=== PATIENT | male | born 1950 | race Caucasian/White ===

== ENCOUNTER 2017-03-13 02:57 | Emergency (ER) | payer MEDICARE, OTHER ==
[2017-03-13 03:05] LABS: EOSINOPHILS % (AUTO) 3.9 % (0-5); MONOCYTES % (AUTO) 9.3 % (4-12); Mean Corpuscular Hemoglobin 30.7 pg (27.0-35.0); Mean Corpuscular Volume 87.6 fL (81-100); NEUTROPHILS % (AUTO) 64.3 % (40-74); Platelet Count 258 bil/L (150-400)
[2017-03-13 03:20] LABS: INR 0.96 ratio
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
[2017-03-13 03:25] LABS: TROPONIN T 0.01 ug/L (0.0-0.011)
[2017-03-13] MEDS ORDERED: Alteplase (No Charge) 1 mg/mL Syringe IV ONE (04:00)
[2017-03-13] MEDS ORDERED: ALTEPLASE IV ONE (04:00)
[2017-03-13 05:06] VITALS: BP 145/73; PULSE 65; RESP 16; O2SAT 96
--- NOTE | 2017-03-13 09:00 | DRSVH ---
PROCEDURE: CT BRAIN (TPA) ([id number]) INDICATIONS: Stroke TECHNIQUE: Noncontrast 4.5 mm thick angled axial sections acquired from the foramen magnum to the vertex, with c oronal reformats. COMPARISON: None. FINDINGS: Preliminary report by night clerk auditor radiology Image quality: Excellent. CSF spaces: Basal cisterns are patent. No extra-axial fluid collections. Ventricles are symmetrica l in size and shape. Brain: No midline shift. No intracranial masses or hemorrhage. Quezada-white matter interface is norm al. There is slight, ill-defined decreased attenuation in the left temporal parietal region. The left middle cerebral artery appears hyperdense. Skull and face: Calvarium and visualized facial bones are intact, without suspicious lesions. Sinuses: Visualized sinuses and mastoids are clear. IMPRESSION: 1. No intracranial hemorrhage or contraindication to TPA seen. 2. Findings are of concern for possible acute left hemispheric CVA. MRI imaging recommended. Findings appear concordant with the preliminary report This study fulfills neurological imaging criteria for inclusion or exclusion of acute stroke therapie s based on available published neurological imaging guidelines. Dictated by: Chaka Ochoa M.D. on 03/13/2017 at 8:53 Approved by: Chaka Ochoa M.D. on 03/13/2017 at 8:58
--- NOTE | 2017-03-13 09:25 | DRSVH ---
PROCEDURE: X-RAY CHEST ONE VIEW ([id number]) INDICATIONS: STROKE LMCA TECHNIQUE: One view of the chest was acquired. COMPARISON: None. FINDINGS: Surgical changes and devices: None. Lungs and pleura: No pleural effusions or pneumothorax. Lungs are clear. Mediastinum: Mediastinal contours appear normal. Heart size is normal. Bones and chest wall: No suspicious bony lesions. Overlying soft tissues appear unremarkable. IMPRESSION: No acute cardiopulmonary disease. Dictated by: José COLLIER Interpreted: Humble Ochoa MD on 03/13/2017 at 9:24 Transcribed by: DAVID on 03/13/2017 at 9:24 Approved by: Chaka Ochoa M.D. on 03/13/2017 at 10:50
== END 2017-03-13 04:55 | disposition short-term general hospital (02) ==
LOC: SED 02:57
DX: I63.9 Cerebral infarction, unspecified (principal); I10 Essential (primary) hypertension; G47.33 Obstructive sleep apnea (adult) (pediatric)
CPT/HCPCS: 36415; 37195; 70450; 71010; 80053; 84484; 85025; 85610; 85730; 93005; 99291; 99292; J2997